=== PATIENT | female | born 1960 | race Caucasian/White ===

== ENCOUNTER 2020-09-27 12:52 | Emergency (ER) | payer OTHER ==
[~2020-09-27] VITALS: Ht 160 cm; Wt 57.6 kg
[2020-09-27] MEDS ORDERED: ASACOL HD800 MG PO (14:16)
== END 2020-09-27 17:01 | disposition home or self-care (01) ==
LOC: ER 12:52 → CPU-OBS 16:15 → ER 17:01
DX: R07.89 Other chest pain (principal)
CPT/HCPCS: G0378; G0379; 93005

== ENCOUNTER 2025-02-17 07:10 | Outpatient (CLI) | payer OTHER ==
[~2025-02-17 07:10] MED LIST: ASACOL HD800 MG PO
== END 2025-02-17 07:11 | disposition home or self-care (01) ==
LOC: NUCLEAR 07:10
DX: I20.9 Angina pectoris, unspecified (principal)